=== PATIENT | female | born 1965 | race Caucasian/White ===

== ENCOUNTER 2022-01-26 10:59 | Emergency (ER) | payer BC | END 2022-01-26 12:20 | disposition home or self-care (01) | LOC: CSHERS 10:59 | DX: M79.661 Pain in right lower leg (principal); E11.9 Type 2 diabetes mellitus without complications; E78.5 Hyperlipidemia, unspecified; I10 Essential (primary) hypertension; Z87.891 Personal history of nicotine dependence ==

== ENCOUNTER 2022-03-21 09:47 | Outpatient (CLI) | payer BC | END 2022-03-21 09:48 | disposition home or self-care (01) | LOC: CSHMAMMO 09:47 | PROVIDERS: ATTEND Family Medicine | DX: Z12.31 Encounter for screening mammogram for malignant neoplasm of breast (principal) | CPT/HCPCS: 77063; 77067 ==